=== PATIENT | female | born 1990 | race Caucasian/White ===

== ENCOUNTER 2024-03-24 18:42 | Emergency (ER) | payer OTHER, SELFPAY ==
--- OUTSIDE RECORDS SUMMARY | 2024-03-24 18:45 | XMS REPORT | Continuity of Care Document ---
Author Name Unknown Address [address] [facility] [address] [place] [address] [facility] thconnect Address [address] [facility] [address] [place] [address] Care Team Providers Care Mass Communications Instructor Name Role Phone PCP, PATIENT DOES NOT HAVE A Primary Care Physic lynne Unavailable CASPER SINGH Attending Clinician Unavailable Jose Antonio Mcfarland MD Attending Clinician [phone] Casper Singh DO Attending Clinician [phone] Christina Rushing MD Attending Clinician [phone] CASPER SINGH Admitting Clinician Unavailable Casper Singh DO Admitting Clinician [phone] Payers Payer Name Policy Type Policy Number Effective Date Expirati on Date Source [facility] [id number] 2017 00:00:00 2023 00:00:00 Problems Condition Name Condition Details Condition Category Status Onset Date Resolution Date Last Treatment Date Treating Clinician Comments Source Appendicit is Appendicit is Disease Active 11-03 00:00: 00 [facility] Routine follow-up Routine follow-up Disease Active 03-24 00:00: 00 [facility] Obesity (BMI 30-39.9) Obesity (BMI 30-39.9) Disease Active 03-07 00:00: 00 [facility] HGSIL (high grade squamous intraepith elial lesion) on Pap smear of cervix HGSIL (high grade squamous intraepith elial lesion) on Pap smear of cervix Disease Active 02-03 00:00: 00 Overview: Formattin g of this note might be different from the original. Needs colpo after delivery [facility] Tubal ligation status Tubal ligation status Disease Active 01-31 00:00: 00 [facility] Allergies, Adverse Reactions, Alerts Allergy Name Allergy Type Status Severity Reaction(s) Onset Date Inactive Date Treating Clinician Comments Source PHENYTOI N DRUG INGREDI Active High Other-Cmnt 11-03 00:00: 00 [facility] Phenytoi n Propensi ty to adverse reaction s Active Other - See comments 11-03 00:00: 00 Muscle spasms [facility] Penicill ins Propensi ty to adverse reaction s Active Anaphylaxis 04-10 00:00: 00 [facility] PENICILL INS Drug Class Active Anaphylaxis 04-10 00:00: 00 [facility] Social History Social Habit Start Date Stop Date Quantity Comments Source History of tobacco use Passive smoker [facility] Alcohol intake 2023-11-04 00:00:00 2023-11-04 00:00:00 0 /d [facility] Tobacco Comment 2023-11-03 00:00:00 2023-11-03 00:00:00 Patient reports she vapes daily [facility] Tobacco use and exposure 2023-11-03 00:00:00 2023-11-03 00:00:00 Smokeless tobacco non-user [facility] History of Social function 2023-11-03 00:00:00 2023-11-03 00:00:00 [facility] Education - What is the highest level of school you have completed or the highest degree you have received? 2023-11-03 00:00:00 2023-11-03 00:00:00 9th grade [facility] Sex Assigned At 1990 00:00:00 1990 00:00:00 [facility] Smoking Status Start Date Stop Date Source Occasional tobacco smoker 2023-11-03 00:00:00 [facility] Medications Ordered Medication Name Filled Medication Name Start Date Stop Date Current Medication? Ordering Clinician Indication Dosage Frequency Signature (SIG) Comments Components Source magnesium hydroxide (MILK OF MAGNESIA) 400 mg/5 mL suspension 30 mL 11-05 16:00: 00 Yes 30mL 30 mL, Oral, DAILY, First dose (after last modificati on) on 11/05/23 at 1000, Until Discontinu ed, Routine [facility] enoxaparin (LOVENOX) injection 40 mg 11-05 14:00: 00 Yes 40mg 40 mg, Subcutaneo us, Q24H, First dose on 11/05/23 at 0800, Until Discontinu ed, Routine [facility] lactated ringers IV infusion 1,000 mL 11-05 02:15: 00 11-05 15:31 :20 No 1000mL at 100 mL/hr, 1,000 mL, IV Infusion, CONTINUOUS , Starting on Tue11/04/23 at 2015, Until 11/05/23 at 0931, Routine [facility] levoFLOXaci n in D5W (LEVAQUIN) 750 mg/150 mL Piggyback 750 mg 11-05 02:00: 00 11-05 15:31 :14 No 750mg 750 mg, IV Piggyback, at 100 mL/hr Administer over 90 Minutes, Q24H ABX, 4 doses, First dose (after last modificati on) on Tue11/04/23 at 2000, Last dose on Tue11/07/23 at 1999, SHANNON
Re ason for Anti-Infec tive: Empiric Therapy for Suspected Infection< br>Empiric Therapy Site: Abdominal< br>Duratio n of therapy: 5 days [facility] polyethylen e glycol 3350 17 gram/dose powder 11-05 00:00: 00 11-20 05:59 :00 No [id number] 17g Take 17 g by mouth in the morning for 14 days. [facility] acetaminoph en-codeine 300-30 mg tablet 11-05 00:00: 11-13 05:59 :00 No 4647 1{tbl} Take 1-2 tablets by mouth every 6 (six) hours as needed for Pain (scale 1-3) or Pain (scale 4-6) for up to 7 days. For patients < 12 years recommend do not exceed 5 doses or 2.6 gm in 24 hours totals for all acetaminop hen containing products. For adults with normal hepatic function recommend do not exceed 3 grams in 24 hours for all acetaminop hen containing products. Indication s: acute pain [facility] ondansetron 4 mg disintegrat ing tablet 11-05 00:00: 00 11-13 05:59 :00 No [id number] 4mg Take 1 tablet by mouth every 8 (eight) hours as needed for Nausea and Vomiting (N/V) for up to 7 days. [facility] acetaminoph en (TYLENOL) tablet 650 mg 11-04 18:00: 00 Yes 650mg 650 mg, Oral, Q6H, First dose on Tue11/04/23 at 1200, Until Discontinu ed, Routine [facility] lactulose (CEPHULAC) solution 30 mL 11-04 17:15: 00 11-04 18:56 :00 No 30mL 30 mL, Oral, ONCE, 1 dose, On Tue11/04/23 at 1115, Routine [facility] ondansetron (ZOFRAN (PF)) injection 4 mg 11-04 01:46: 53 Yes 4mg 4 mg, Slow IV Push, Q6HPRN, Nausea and Vomiting (N/V), Starting on Tue11/03/23 at 1946
Do ses of ondansetro n 16 mg and above need to be administer ed via IV piggyback. For Dose >=24mg ECG monitoring is advisable.
[facility] ketorolac (TORADOL) injection 15 mg 11-04 00:00: 00 11-05 23:59 :00 No 15mg 15 mg, Slow IV Push, Q6H, 8 doses, First dose on Tue11/03/23 at 1800, Last dose on Tue11/05/23 at 1200, Routine [facility] heparin (porcine) injection 5,000 Units 11-03 20:00: 00 11-05 01:03 :26 No 5000U 5,000 Units, Subcutaneo us, Q8H, First dose on Lesly 11/03/23 at 1400, Until Discontinu ed, Routine [facility] HYDROcodone -acetaminop hen (NORCO 5) 5-325 mg tablet 1 tablet 11-03 19:56: 24 Yes 1{tbl} 1 tablet, Oral, Q6HPRN, Starting on Lesly 11/03/23 at 1356, Until Discontinu ed, Routine, Pain (scale 4-6) [facility] lactated ringers IV infusion 1,000 mL 11-03 19:00: 00 11-04 00:55 :35 No 1000mL at 50 mL/hr, 1,000 mL, IV Infusion, CONTINUOUS , Starting on Lesly 11/03/23 at 1300, Until Lesly 11/03/23 at 1855, Routine [facility] HYDROmorphO ne (DILAUDID) injection 0.2 mg 11-03 18:45: 18 11-03 19:52 :48 No .2mg 0.2 mg, Slow IV Push, Q5MIN PRN, 10 doses, Starting on Lesly 11/03/23 at 1245, Until Lesly 11/03/23 at 1352, Routine, Pain (scale 7-10), PACU
Us e approved by (Faculty): PACU USE -ANESTHESI A SERVICE-HY DROMORPHON E INJECTIONS [facility] FENTanyl PF (SUBLIMAZE (PF)) injection 25 mcg 11-03 18:45: 18 11-03 19:52 :48 No 25ug 25 mcg, Slow IV Push, Q5MIN PRN, 4 doses, Starting on Lesly 11/03/23 at 1245, Until Lelsy 11/03/23 at 1352, Routine, Pain (scale 4-6), PACU [facility] ondansetron (ZOFRAN (PF)) injection 4 mg 11-03 18:45: 18 11-03 19:29 :00 No 4mg 4 mg, Slow IV Push, PRN, 1 dose, Starting on Lesly 11/03/23 at 1245, Until Lesly 11/03/23 at 1329, Routine, Nausea and Vomiting (N/V), PACU [facility] water for irrigation irrigation solution 11-03 18:25: 00 11-03 19:43 :58 No PRN, Starting on Lesly 11/03/23 at 1225, Until Lesly 11/03/23 at 1343, Routine, Intra-op [facility] bupivacaine (preserv free) (SENSORCAIN E MPF) 0.25 % (2.5 mg/mL) injection 11-03 18:25: 00 11-03 19:43 :58 No PRN, Starting on Lesly 11/03/23 at 1225, Until Lesly 11/03/23 at 1343, Routine, Intra-op [facility] nicotine (NICODERM) 14 mg/24 hr patch 1 Patch 11-03 17:15: 00 Yes 1{patch } 1 Patch, Topical, Administer over 24 Hours, Q24H, First dose on Lesly 11/03/23 at 1115, Until Discontinu ed, Routine [facility] metroNIDAZO LE in NaCl (iso-os) (FLAGYL I.V.) RTU IV infusion 500 mg 11-03 15:30: 00 11-05 15:31 :14 No 500mg 500 mg, IV Infusion, Q12H ABX, 10 doses, First dose on Lesly 11/03/23 at 0930, Last dose on Tue11/07/23 at 2130, Administer over 60 Minutes, 100 mL
Reas on for Anti-Infec tive: Empiric Therapy for Suspected Infection< br>Empiric Therapy Site: Abdominal< br>Duratio n of therapy: 5 days [facility] lactated ringers IV infusion 1,000 mL 11-03 14:30: 00 11-03 18:59 :55 No 1000mL at 125 mL/hr, 1,000 mL, IV Infusion, CONTINUOUS , Starting on Lesly 11/03/23 at 0830, Until Lesly 11/03/23 at 1259, Routine [facility] morpHINE (4 mg/mL) injection 4 mg 11-03 14:15: 20 11-04 14:14 :20 No 4mg 4 mg, Slow IV Push, Q4HPRN, Starting on Tue11/03/23 at 0815, Until Tue11/04/23 at 0814, Routine, Pain (scale 7-10) [facility] ferrous sulfate 325 mg (65 mg iron) tablet 03-03 00:00: 00 Yes 325mg Take 1 tablet by mouth 2 (two) times daily. [facility] docusate calcium 240 mg capsule 03-03 00:00: 00 11-05 00:00 :00 No 240mg Take 1 capsule by mouth once daily as needed for Constipati on. [facility] acetaminoph en-codeine 300-30 mg tablet 03-03 00:00: 00 11-05 00:00 :00 No 1{tbl} Take 1-2 tablets by mouth every 6 (six) hours as needed for Pain (scale 1-3) or Pain (scale 4-6). For patients < 12 years recommend do not exceed 5 doses or 2.6 gm in 24 hours totals for all acetaminop hen containing products. For adults with normal hepatic function recommend do not exceed 3 grams in 24 hours for all acetaminop hen containing products. [facility] ibuprofen 600 mg tablet 03-03 00:00: 00 11-03 00:00 :00 No 600mg Take 1 tablet by mouth every 6 (six) hours as needed for Pain (scale 1-3) or Pain (scale 4-6). Take with food or milk. [facility] vitamin w/FA tablet 03-03 00:00: 00 11-03 00:00 :00 No 1{tbl} Take 1 tablet by mouth daily. [facility] Immunizations Ordered Immunization Name Filled Immunization Name Date Status Comments Source TD, NOS Unknown Completed [facility] TDAP Unknown Completed [facility] Rho (d) Immune Globulin Unknown Completed [facility] Rho (d) Immune Globulin Unknown Completed [facility] TD, NOS Unknown Completed [facility] TDAP Unknown Completed [facility] Rho (d) Immune Globulin Unknown Completed [facility] Rho (d) Immune Globulin Unknown Completed [facility] Vital Signs Vital Name Observation Time Observation Value Comments S chelsie Systolic blood pressure 2023-11-05 16:58:00 124 mm[Hg] [facility] Diastolic blood pressure 2023-11-05 16:58:00 84 mm[Hg] [facility] Heart rate 2023-11-05 16:58:00 83 /[facility] Body temperature 2023-11-05 16:58:00 36.22 Nany [facility] Respiratory rate 2023-11-05 16:58:00 18 /min [facility] Oxygen saturation in Arterial blood by Pulse oximetry 2023-11-05 16:58:00 96 /min [facility] Body weight 2023-11-05 09:38:00 87.091 kg [facility] BMI 2023-11-05 09:38:00 37.50 kg/m2 [facility] Body height 2023-11-03 15:54:00 152.4 cm [facility] Systolic blood pressure 2023-11-03 19:42:00 105 mm[Hg] [facility] Diastolic blood pressure 2023-11-03 19:42:00 66 mm[Hg] [facility] Heart rate 2023-11-03 19:42:00 89 /min [facility] Respiratory rate 2023-11-03 19:42:00 10 /min [facility] Oxygen saturation in Arterial blood by Pulse oximetry 2023-11-03 19:42:00 99 /min [facility] Body temperature 2023-11-03 18:50:00 36.11 Nany [facility] Body height 2023-11-03 15:54:00 152.4 cm [facility] Body weight 2023-11-03 15:54:00 86.5 kg [facility] BMI 2023-11-03 15:54:00 37.89 kg/m2 [facility] Procedures Procedure Date / Time Performed Performing Clinician Source BASIC METABOLIC PANEL (NA, K, CL, CO2, GLUCOSE, BUN, CREATININE, CA) 2023-11-05 10:31:00 Casper Singh [facility] CBC WITH DIFF 2023-11-05 10:31:00 Casper Singh [facility] CBC WITH DIFF 2023-11-04 11:08:00 Dannielle Mcghee [facility] CBC WITH DIFF 2023-11-04 11:08:00 Dannielle Mcghee [facility] LAPAROSCOPIC APPENDECTOMY 2023-11-03 17:31:00 Kristan [facility] LAPAROSCOPIC APPENDECTOMY 2023-11-03 17:31:00 Kristan [facility] MAGNESIUM 2023-11-03 15:44:00 Casper Singh [facility] COMP. METABOLIC PANEL ([id number]) 2023-11-03 15:44:00 Casper Singh [facility] CBC WITH DIFF 2023-11-03 15:44:00 Casper Singh [facility] MAGNESIUM 2023-11-03 15:44:00 Casper Singh [facility] COMP. METABOLIC PANEL ([id number]) 2023-11-03 15:44:00 Casper Singh [facility] CBC WITH DIFF 2023-11-03 15:44:00 Casper Singh [facility] Encounters Start Date/Time End Date/Time Encounter Type Admission Type Attending Clinicians Care Facility Care Department Encounter ID Source 2023-11-03 07:58:00 2023-11-05 11:53:00 Outpatient U CASPER SINGH [facility] [id number] [facility] 2023-11-03 07:58:00 2023-11-05 11:53:00 Hospital Encounter Jose Antonio Mcfarland David [facility] [id number] [facility] 2023-11-03 11:50:00 2023-11-03 13:42:00 Surgery Christina Rushing [facility] [id number] [facility] Consult Notes Date/Time Note Provider Source 2023-11-03 14:15:00 [id number] T14:15:00Associated Order(s): CONSULT PS PASTORAL CARE Universal Winding Machine Operator visited with patient per consult. Patient had surgery this morning. Patient received in bed awake. Patient appeared to be in pain and tears. Universal Winding Machine Operator called for nurse support. Patient was at bedside.Universal Winding Machine Operator was a spiritual presence and yarn sizer offering active compassionate listening. Universal Winding Machine Operator assist patient with nurse support. Universal Winding Machine Operator offered patient words of support and encouragement. Universal Winding Machine Operator left patient with a spiritual reading resource for continued encouragement. Patient thanked Universal Winding Machine Operator for the visit.Additional Universal Winding Machine Operator support is available upon request.Universal Winding Machine Operatoryue Montoya, [facility] [phone] signed by Christina Montoya at 11/03/2023 4:03 PM [id number] [id number]:03:01Consult [id number] for patient [id number] noteLNNARRATIVEFormatted C-CDA narrative [id number] Medina[address] V[id number]:03 :[id number]|1..840.1 [id number] Christina Montoya [facility] 2023-11-03 11:00:00 [id number] SRAfutBAZL2kofO/P [id number] T11:00:00Associated Order(s): CONSULT GENERAL SURGERY GENERAL SURGERY CONSULTATION NOTEReason for Consultation / Chief Complaint: Acute appendicitisConsult Requested By: Dr. SinghHislouise of Present Illness: Shelley Kinsey is a 33 year old female with PMHx as below who presents as a transfer for acute appendicitis. She reports acute onset of RLQ abdominal pain which woke her from sleep around 0045 hrs. She reports associated nausea. Denies fever, chills, vomiting. No similar pain in past. No blood thinners. She was seen at an OSH and imaging completed which showed early acute appendicitis.Past Medical History:Past Medical History:Diagnosis DateAnemia, 03/03/2017Seizureshad seizure after of third child a couple of days after deliveryPast Surgical History:Past Surgical History:Procedure Laterality DateTUBAL LIGATION Bilateral 03/02/2017Surgeon: Da Diamond; [facility] - [facility]Allergies:AllergiesAllergen ReactionsDilantin [Phenytoin] Other - See commentsMuscle spasmsPcn [Penicillins] AnaphylaxisMedications:Current Discharge Medication ListSTOP taking these medicationsacetaminophen-codeine 300-30 mg tablet Comments:Reason for Stopping:docusate calcium 240 mg capsule Comments:Reason for Stopping:ferrous sulfate 325 mg (65 mg iron) tablet Comments:Reason for Stopping:Current Facility-Administered MedicationsMedication Dose Route Frequency Last Rate Last Adminheparin (porcine) injection 5,000 Units 5,000 Units Subcutaneous G7Kqkrahmkn ringers IV infusion 1,000 mL 1,000 mL IV Infusion CONTINUOUS 125 mL/hr at 11/03/23 1040 1,000 mL at 11/03/23 1040[START ON 11/04/2023] levoFLOXacin in D5W (LEVAQUIN) 750 mg/150 mL Piggyback 750 mg 750 mg IV Piggyback Q24H ABXmetroNIDAZOLE in NaCl (iso-os) (FLAGYL I.V.) RTU IV infusion 500 mg 500 mg IV Infusion Q12H ABX 100 mL/hr at 11/03/23 1045 500 mg at 11/03/23 1045morpHINE (4 mg/mL) injection 4 mg 4 mg Slow IV Push Q4HPRN 4 mg at 11/03/23 1035nicotine (NICODERM) 14 mg/24 hr patch 1 Patch 1 Patch Topical [id number] History:Family HistoryProblem Relation Age of OnsetHeart FatherMIBreast Cancer Maternal AuntBreast Cancer Maternal GrandmotherArthritis NoFHxAsthma NoFHxBirth defects NoFHxColon Cancer NoFHxOvarian Cancer NoFHxUterine Cancer NoFHxCancer NoFHxDepression NoFHxDiabetes NoFHxGenetic NoFHxHigh cholesterol NoFHxHypertension NoFHxMental retardation NoFHxNeurological NoFHxOsteoporosis NoFHxPsychiatry NoFHxOther - see comments NoFHxSocial History:Social HistorySocioeconomic HistoryMarital status: SingleNumber of children: 6Years of education: 9Highest education level: 9th gradeOccupational HistoryOccupation: NATEmployer: [employer] [employer] CENTERTobacc UseSmoking status: Some DaysTypes: CigarettesPassive exposure: PastSmokeless tobacco: NeverTobacco comments:Patient reports she vapes dailyVaping UseVaping Use: Every daySubstance and Sexual ActivityAlcohol use: NoAlcohol/week: 0.0 standard drinks of alcoholDrug use: NoSexual activity: YesPartners: MaleBirth control/protection: NoneComment: last had sex intercourse 12/03/2016Other Topics ConcernBlood Transfusions NoSocial History NarrativeNo domestic violence or abusePt states her mormonism preference is BaptistReview of Systems:A 14 point ROS was obtained, only positive responses are in BOLDConstitutional: Fever, chills, loss of appetite, fatigue, unexplained weight loss, unexplained weight gain, weaknessHead/Ears/Nose/Mouth/Throat:H ead: Headache, head injury, neck pain, neck stiffnessEars: Ear discharge, hearing loss, ear pain, tinnitusNose: Nose bleeds, sinus congestion, runny nose, postnasal drip, sneezing, sinus pressureMouth: Dental problems, mouth sores, sore tongue, dry mouthThroat: Sore throat, trouble swallowing, voice changeEyes: Discharge, itching, pain, redness, pain, vision disturbance, blurred vision, vision loss, cataracts, glaucomaCV: Chest pain, palpitations, arrhythmias, dyspnea on exertion, othopnea, claudication, edema, coronary artery disease/history of MIRespiratory: Cough, sputum production, hemoptysis, wheezing, shortness of breath, sleep apneaGI: Dysphagia, abdominal pain, abdominal distention, indigestion, nausea, vomiting, diarrhea, constipation, hematemesis, blood in stool or dark stool, rectal bleeding, rectal pain, jaundiceGU: Frequency, urgency, pain or burning with urination, flank pain, hematuria, incontinence, change in urinary stream, discharge, bleeding, pelvic pain, irregular mensesMusculoskeletal: Muscle pain, joint pain, joint swelling, back pain, stiffness, weakness, limitation of motion, arthritis, traumaIntegumentary/Breast:Integument daiana: Rash, itching, pigmented lesions, lumps, tenderness, swelling, woundBreast: Pain, lumps, nipple discharge, skin changesNeurological: Weakness, sensory changes, syncope, seizures, headache, numbness, tingling, tremor, traumaHematologic/Lymphatic:Hematolog ic: Bleeding tendency, easy bruising, history of blood clots, anticoagulation/antiplatelet therapyLymphatic: LymphadenopathyEndocrine: Polyuria, polydipsia, polyphagia, heat or cold intolerance, hair loss, appetite changesAllergic/Immunologic:Allergic: Allergic reactionsImmunologic: Recurrent infectionsPsychiatric: Agitation, confusion, decreased concentration, hallucinations, anxiety, self-injury, sleep disturbance, suicidal ideationPhysical Exam:BP 109/70 | Pulse 87 | Temp 36.4 ?C (97.6 ?F) | Ht 1.524 m (5') | Wt 86.5 kg (190 lb 11.2 oz) | SpO2 95% | BMI 37.24 kg/m?Constitutional: Awake, alert, oriented, in no acute distressHead: Normocephalic, atraumaticEyes: Extraocular movements grossly intact, anicteric scleraeEars: Normal external examNose: Normal external examMouth: Moist mucous membranes, good dentition, no lesions, tongue midlineThroat: Clear without erythema or exudateNeck: Supple, no jugular venous distentionCardiovascular: Regular rate and rhythm without murmurs, gallops, or rubsRespiratory: Symmetry of chest wall motion, clear to ausculation bilaterally, no respiratory distressGI: Soft, tender in right abdomen, mostly RLQ, non-distended, well healed small transverse infraumbilical scarExtremities: No clubbing, cyanosis, or edemaMusculoskeletal: Normal tone and strength, normal range of motionNeurologic: CN II through XII grossly intact, no focal deficitsSkin: Warm and dry, capillary refill <2 seconds, no jaundice, rashes, lesions, or erythemaPsychiatric: Appropriate mood and affect, no obvious deficits of insight or judgmentLabs:I independently reviewed the patient's labs.CBCWBC x10^3 (/uL)Date Value04/10/2014 11.9 (H)WBC (10*3/?L)Date Value11/03/2023 16.11 (H)RBC x10^6 (/uL)Date Value04/10/2014 3.61 (L)RBC (10*6/?L)Date Value11/03/2023 4.10PLT x10^3 (/uL)Date Value04/10/2014 222PLT (10*3/?L)Date Value11/03/2023 207HGBDate Value11/03/2023 12.7 g/dL04/10/2014 11.5 G/DL (L)HCT (%)Date Value11/03/2023 38. 34.7 (L)BMPNA (mmol/L)Date Value11/03/2023 137K (mmol/L)Date Value11/03/2023 3.7CALCIUM (mg/dL)Date Value11/03/2023 8.8CL (mmol/L)Date Value11/03/2023 105BUN (mg/dL)Date Value11/03/2023 9CREATININE (mg/dL)Date Value11/03/2023 0.51GLUCOSE (mg/dL)Date Value11/03/2023 94CO2 TOTAL (mmol/L)Date Value11/03/2023 24Hepatic Function PanelALBUMIN (g/dL)Date Value11/03/2023 4.1T PROTEIN (g/dL)Date Value11/03/2023 7.3TOTAL BILI (mg/dL)Date Value11/03/2023 0.6ALTv (U/L)Date Value11/03/2023 25AST(SGOT) (U/L)Date Value11/03/2023 34ALK PHOS (U/L)Date Value11/03/2023 69Radiology:OSH CT abdomen/pelvis unable to be viewed, read reports enlarged appendix measuring 7 mm with wall enhancement, no appendicolith, small amount of stranding, small amount of fluid in cul de sacAssessment: Shelley Kinsey is a 33 year old female who presents with acute appendicitis. Afebrile, vitals stable, non toxic appearing.Plan:- OR today for laparoscopic, possible open, appendectomy and all other indicated procedures- Written informed consent obtained- NPO with IVF for procedure- Continue IV abx pre operativelyAdamssfe Luna, DOGeneral Surgery PGY-3 ssociated attestation - Christina Rushing MD - 11/03/2023 1:04 PM CST I personally examined the patient on 11/03/[address] Luna's resident note as written . I actively participated in the decision-making process. Please see the resident's note for additional details.Christina Rushing MD11488-4Consult [id number]395.1.13.104.2.7.2 .749594FrcnXcwqverwMR1657-07-07V77:04 :58Consult noteTXT1.2.840.094281.1.13.104.2.7.2. 998775|[id number] for patient iyxm89917-3Rgaacui noteLNNARRATIVEFormatted C-CDA narrative hewiVTW-WVIMMRQLUM-PTZIAFHYWMRATMW - Lgx[address] [place] [address] HlyzYqjheovwiCtrhmnlxfMKQU1879831663J ODACYAACFRWRPYCPYFART4737-62-06T33:04 :581.2.840.306714.1.72.3.15|1.2.840.1 79096.1.13.104.2.7.2.727879_[id number] 3 [facility] History and Physical Notes Date/Time Note Provider Source 2023-11-03 10:07:50 qhmzIfBa16WfiSNIkIEv lm+YM8+lmSNZvwmkESoQap hSDFvZPzyxmAblW9z/yPI40819-40-59O24:07:50F ormatting of this note is different from the original.Medicine History & PhysicalDate of Service: 11/03/2023t presents from: Outside ERCC: Abdominal painHistory of Present Illness:Shelley Kinsey is a 33 year old female with past md hx of seizures not on medication, anemia, history of headaches that presents to outside emergency room for abdominal pain. Per patient and chart she was in her normal state of health developed severe right lower quadrant abdominal pain started approximately 1 AM. She states last evening at approximately 8 PM the night before and drank tea at approxi-1 AM. She states developing intractable abdominal pain with nausea and vomiting no diarrhea denies any melena hematochezia or hematemesis. Due to this pain she decided to go to the ED for evaluation. In the emergency department at [facility] her initial CBC showed no elevated white blood cell count. Chemistries show an elevated glucose of 117. UA showed no white blood cells. INR normal. She did receive a CT of the abdomen pelvis shown a large appendix with mild wall thickening and enhancement with faint Fritz appendectomy Veal stranding and no intraluminal air findings were suspicious for early acute appendicitis. She is also noted to have small amount of free fluid in the pelvic cul-de-sac. No abscess was seen. Based on exam and results she was diagnosed with acute appendicitis at facility request transfer to our facility. Patient was given a dose of Flagyl and Cipro on the ambulance ride to our facility transported without further incident.On my exam she is complaining of right lower quadrant pain feels nauseous. States she takes no medications she does vape daily smokes occasionally denies drugs or alcohol.ROS: Pt denies F / D / Constipation / CP / SOB / cough dysuria / hematuria / melena / hematochezia / rashes / suicidal or homicidal ideation / All others negativeReview of Hx/Meds:PMH:Past Medical History:Diagnosis DateAnemia, 03/03/2017Seizureshad seizure after of third child a couple of days after deliveryPSH: has a past surgical history that includes tubal ligation (Bilateral, 03/02/2017).Family Hx: Noncontributory unless mentioned aboveSocial HistoryTobacco UseSmoking status: Some DaysTypes: CigarettesPassive exposure: PastSmokeless tobacco: NeverTobacco comments:Patient reports she vapes dailyVaping UseVaping Use: Every daySubstance Use TopicsAlcohol use: NoAlcohol/week: 0.0 standard drinks of alcoholDrug use: NoCurrent Scheduled Medications Current IVCurrent Facility-Administered Medications:heparin (porcine) injection 5,000 Units, 5,000 Units, Subcutaneous, Q8H, Casper Singh DOlactated ringers IV infusion 1,000 mL, 1,000 mL, IV Infusion, CONTINUOUS, Casper Singh DO[START ON 11/04/2023] levoFLOXacin in D5W (LEVAQUIN) 750 mg/150 mL Piggyback 750 mg, 750 mg, IV Piggyback, Q24H Hossein MELTON David DOmetroNIDAZOLE in NaCl (iso-os) (FLAGYL I.V.) RTU IV infusion 500 mg, 500 mg, IV Infusion, Q12H Hossein MELTON David DOmorpHINE (4 mg/mL) injection 4 mg, 4 mg, Slow IV Push, Q4HPRNHossein David DOnicotine (NICODERM) 14 mg/24 hr patch 1 Patch, 1 Patch, Topical, Q24H, Casper Singh DOObjective:Vitals:Vitals:11/03/23 0800 11/03/23 0821 11/03/23 0951 11/03/23 0954BP: 109/70Pulse: 87Temp: 36.4 ?C (97.6 ?F)SpO2: 95%Weight: 90.5 kg (199 lb 8 oz) 86.5 kg (190 lb 9.6 oz) 86.5 kg (190 lb 11.2 oz)Height: 1.524 m (5') 1.524 m (5') 1.524 m (5')I/O's:No intake or output data in the 24 hours ending 11/03/23 1007Physical Exam:General: NAD, Alert, lying in bed comfortable, cogent speech.HEENT: anicteric, oral mucosa dryNeck: supple, no JVD, no bruits.Chest: CTA B/L, no W/R/C.Heart: RRR, S1/S2, no M/G/RAbdominal: Bowel sounds diminished, generalized peritoneal tenderness without guarding or rigiditySkin/Extremities: no rash, no cyanosis, warm and dry, no LE edema.Neurological: CN II-XII grossly intact, no focal deficits.Labs:BMP:BMPNo results found for: "NA", "K", "CA", "CL", "BUN", "CREAT", "GLU", "TCO2"CBC:CBCWBC x10^3 (/uL)Date Value04/10/2014 11.9 (H)WBC (10*3/?L)Date Value03/08/2017 11.04RBC x10^6 (/uL)Date Value04/10/2014 3.61 (L)RBC (10*6/?L)Date Value03/08/2017 3.81 (L)PLT x10^3 (/uL)Date Value04/10/2014 222PLT (10*3/?L)Date Value03/08/2017 331HGBDate Value03/08/2017 11.5 g/dL (L)04/10/2014 11.5 G/DL (L)HCT (%)Date Value03/08/2017 35.2 (L)04/10/2014 34.7 (L)BMP:Hepatic Function PanelI have reviewed all relevant labsImaging:No results found.Assessment and plan:Principal Problem:AppendicitisAcute appendicitis:- Surgical consult- N.p.o.- Start gentle IV fluids- Continue pain management with morphine- Continue antibiotic therapy will go with Levaquin with Flagyl- Trend few white blood cell countActive smoker:- Counseled to quit- Nicotine patch offered and acceptedDVT prophylaxis: HeparinTobacco user (Z71.6): yesPatient counseled at length and Pt expressed full understanding, Time discussed 3 minutesTexas LABELING SPECIALIST was verifiedDisposition: Continue n.p.o. start IV fluids continue antibiotics follow-up surgical evaluation Signed:Casper Singh DO11/03/2023 09163-0Jvphhbr and physical tkhbFA0523-51-25Q68:14:53History and physical noteTXT1.2.840.723210.1.13.104.2.7.2.77302 9|[id number] for patient vhek91193-7Pzmuqsf and physical noteLNNARRATIVEFormatted C-CDA narrative text[address] Uqhh[id number] LZYTOIUMPWKUFVEO3997-58-62X40:14:531.2.840 .131804.1.72.3.15|1.2.840.259827.1.13.104. 2.7.2.727879_[id number] [facility] Notes Date/Time Note Provider Source 2023-11-05 11:25:50 ny5xcVWfjpc/Ul2QiissgGJRe+KKWS0XQu oxbqewPJdaTLPy/YKqlxznDckdDUwN1890 -11-05T11:25:50 Problem: Skin integrity Impaired (Risk or Actual)Goal: Wound healing11/05/2023 112 by Zoila Alcocer RNOutcome: Resolved11/05/2023 112 by Zoila Alcocer RNOutcome: Adequate for dischargeProblem: PainGoal: Reduction in pain sensation11/05/2023 1125 by Zoila Alcocer RNOutcome: Resolved11/05/2023 112 by Zoila Alcocer RNOutcome: Adequate for dischargeProblem: Nausea/VomitingGoal: Absence of nausea/vomiting11/05/2023 112 by Zoila Alcocer RNOutcome: Resolved11/05/20231124 by Zoila Alcocer RNOutcome: Adequate for dischargeProblem: Fluid Volume - ImbalancedGoal: Absence of imbalanced fluid volume signs and symptoms11/05/2023 112 by Zoila Alcocer RNOutcome: Resolved11/05/20231124 by Zoila Alcocer RNOutcome: Adequate for discharge 05673-1Cvxs of care nrkrJP3951-82-00X43:25:51Plan of care noteTXT1.2.840.306413.1.13.104.2.7 .2.483151|[id number] for patient oxvf36410-1ZlsdFKJQCGUPMVLJhzcdrnm d C-CDA narrative [id number] M. Kurian RNUTMBUT - [address] Zq[id number] 07LJNGBYPXRLAISDOMVZAQWV4110-33-59 T11:25:511.2.840.357768.1.72.3.15| 1.2.840.260791.1.13.104.2.7.2.7278 [id number] Zoila Alcocer RN [facility] 2023-11-04 22:44:04 4UNr+JHcD9E4csvoc3RzeMSoFUUp7fvisY oKxF7Qc2LmcEZyGu5PbNNJeO50789t2645 -01-05T22:44:04 Problem: Skin integrity Impaired (Risk or Actual)Goal: Wound healingOutcome: Progressing as expectedProblem: PainGoal: Reduction in pain sensationOutcome: Progressing as expectedProblem: Nausea/VomitingGoal: Absence of nausea/vomitingOutcome: Progressing as expectedProblem: Fluid Volume - ImbalancedGoal: Absence of imbalanced fluid volume signs and symptomsOutcome: Progressing as expected 90630-5Gmzv of care mfqaGL0529-06-89I63:44:09Plan of care noteTXT1.2.840.641914.1.13.104.2.7 .2.495395|[id number] for patient nohb50823-3UcuaNZZDFPITDETCxgsziwp d C-CDA narrative [id number] Kavattu RN[address][id number] 98JBEIPPGXSVXTFIKXZIRZWM4908-65-19 T22:44:091.2.840.768666.1.72.3.15| 1.2.840.869065.1.13.104.2.7.2.7278 [id number] Teresa Cuellar RN [facility] 2023-11-03 22:56:12 /ykKT9MAmygEahayW9+UYzJmlssKxPBfE2 mj+1y4II3izTe4+kuTY/gFyrHC4j3S6778 -01-04T22:56:12 Problem: Skin integrity Impaired (Risk or Actual)Goal: Wound healingOutcome: Progressing as expectedProblem: PainGoal: Reduction in pain sensationOutcome: Progressing as expectedProblem: Nausea/VomitingGoal: Absence of nausea/vomitingOutcome: Progressing as expectedProblem: Fluid Volume - ImbalancedGoal: Absence of imbalanced fluid volume signs and symptomsOutcome: Progressing as expected 30798-7Uyua of care ihukBW3724-18-45L22:56:16Plan of care noteTXT1.2.840.626775.1.13.104.2.7 .2.323182|[id number] for patient fesa47541-7CkeyAOVLWDNQYTUKnlvrwts d C-CDA narrative [address][id number] 09ENKPUMZFNTHBAIASYBKMAF8910-19-26 T22:56:161.2.840.576045.1.72.3.15| 1.2.840.372228.1.13.104.2.7.2.7278 [id number] [facility] 2023-11-03 16:48:17 sQlL0ToWYpsETpLk49+yh7qdOLDoipNWTF 0FIrwxrY91pmPvSnBhSD6vADhX3ein7975 -01-04T16:48:17 Problem: Skin integrity Impaired (Risk or Actual)Goal: Wound healing11/03/2023 1648 by Jodi Lopez RNOutcome: Progressing as expected11/03/2023 1647 by Jodi Lopez RNOutcome: Progressing as expected11/03/2023 1646 by Jodi Lopez RNOutcome: Progressing as expectedProblem: PainGoal: Reduction in pain sensation11/03/2023 1648 by Jodi Lopez RNOutcome: Progressing as expected11/03/2023 1647 by Jodi Lopez RNOutcome: Progressing as expectedProblem: Nausea/VomitingGoal: Absence of nausea/vomiting11/03/2023 1648 by Jodi Lopez RNOutcome: Progressing as expected11/03/2023 1647 by Jodi Lopez RNOutcome: Progressing as expectedProblem: Fluid Volume - ImbalancedGoal: Absence of imbalanced fluid volume signs and symptomsOutcome: Progressing as expected 50153-8Ayxp of care jcqnXN9171-91-17T83:48:23Plan of care noteTXT1.2.840.407497.1.13.104.2.7 .2.108653|[id number] for patient aicx76210-4BuezMUQKTABCNLZEsstamcv d C-CDA narrative vssf954125380VtjbrJodi Lopez RN[address] [id number] 58NHDWCVRPDONTRANLKRQOAP1237-70-16 T16:48:231.2.840.930524.1.72.3.15| 1.2.840.197704.1.13.104.2.7.2.7278 [id number] Jodi Lopez RN [facility] 2023-11-03 12:09:00 0vKo0SEbk/PgZk4kWRVWOmY7A77Q0HSA45 azEeQFu8WZtQN7xO6Q19fpUCuZNh/A2024 -11-03T12:09:00 FULL OPERATIVE NOTEDate of Surgery: 4Preoperative diagnosis: Acute appendicitisPostoperative diagnosis: SameProcedure: Laparoscopic appendectomySurgeons:Faculty: ROMEL Victoriaesident: None availableAnesthesiologist: Trey Mike MDAnesthesia: General endotracheal intubationEBL: 5 mLSponge, needle, and instrument count: Correct at the end of the case H3Bbvdc, drains: NoneSpecimen: AppendixFindings: Mildly inflamed appendix, non-perforated.Complications: NoneIndications:Shelley Kinsey is a 33 year old female who presented to [facility] for RLQ abdominal pain. She had a CT done with concern of acute early appendicitis. The risks and benefits of a laparoscopic appendectomy were discussed with patient and she agreed to proceed.Procedure:The patient was brought back to the operating room. She was placed in supine position. The abdomen was prepped and draped in the usual fashion. A time out was performed, identifying the correct patient, procedure as well as antibiotics.The abdomen was entered through a supraumbilical Bayron cut down. The abdomen was entered and the abdomen was insufflated to 15 mmHg. She tolerated insufflation. I did a brief inspection and there was no injury from our cut down. Patient was positioned with head down and right side up.A 5 mm port was placed under direct visualization in the suprapubic area after local anesthetic was injected. A second 5 mm was placed in the left lower quadrant. The tinea coli was traced down to the base of the appendix. The appendix appeared mildly inflamed. The appendix was retracted anteriorly and laterally. Using maryland, a mesenteric window was created at the base of the appendix. With a ligasure, the mesoappendix was transected. The appendix was then encircled with two 0 PDS endloops. The appendix was transected and placed in an endocatch bag and removed from the supraumbilical port. The fascia was infiltrated with local anesthetic. The fascia was closed with 0 Vicryl in a simple interrupted fashion.All skin incisions were then closed using 4-0 Monocryl in a subcuticular fashion. Dermabond was applied to all skin incisions.The patient was then awakened from general anesthesia, extubated in the operating room, and then transferred to the recovery room in satisfactory condition.The counts were correct at the end of the case. The patient received no blood products.Christina Rushing M.D.11/03/2023 12:52 77730-2Fpoelcs Surgical operation tvfpVI0538-43-80D25:58:35Surgery Surgical operation noteTXT1.2.840.928845.1.13.104.2.7 .2.974551|[id number] for patient tpum35157-5ToaoHCBRYXNHITABfmetfmb d C-CDA narrative textUT[address] OzemMi[id number] 48RGWRDLIJLLEALCZZNUNFOA9090-39-34 T12:58:351.2.840.143042.1.72.3.15| 1.2.840.529458.1.13.104.2.7.2.7278 [id number] [facility]
[2024-03-24] MEDS ORDERED: DIPHENHYDRAMINE 50 MG/ML VIAL ONE (19:33)
[2024-03-24] MEDS ORDERED: METOCLOPRAMIDE 10 MG/2mL INJ ONE (19:33)
[2024-03-24] MEDS ORDERED: NA CHLORIDE 0.9% 1,000 ML ONE (19:33)
[2024-03-24 19:35] LABS: Absolute Basophils 0.1 K/uL (0-0.5); Absolute Eosinophils 0.1 K/uL (0-0.5); Absolute Lymphocytes (CBC) 2.1 K/uL (0.7-4.9); Absolute Monocytes 0.8 K/uL (0.1-1.3); Basophils % 0.6 % (0-1.3); Eosinophils % 1.3 % (0-4.4); Hematocrit 36.2 % (36.0-45.0); Hemoglobin 12.4 g/dL (12.0-15.0); Lymphocytes % 18.7 % (15.3-44.8); MCH 30.7 pg (27.0-35.0); MCHC 34.2 g/dL (32.0-36.0); MCV 89.7 fL (80-100); MPV 7.5 fL (7.6-11.3); Monocytes % 7.4 % (3.3-12.3); Nucleated Red Blood Cells % 0.1 % (0-0); Platelets 395 thou/uL (152-406); RBC Red Blood Cell Count 4.04 M/uL (3.86-4.86); Red Cell Distribution Width 12.8 % (12.1-15.2)
--- NOTE | 2024-03-24 19:35 | RAD REPORT ---
EXAM DESCRIPTION: CT - Head Brain Wo Cont - 03/24/2024 7:26 pm CLINICAL HISTORY: Dizziness;Headache COMPARISON: Head Brain Wo Cont dated 03/20/2024; HEAD BRAIN W O CONTRAST dated 07/08/2010 TECHNIQUE: All CT scans are performed using dose optimization technique as appropriate and may inclu de automated exposure control or mA/KV adjustment according to patient size. FINDINGS: No intracranial hemorrhage, hydrocephalus or extra-axial fluid collection.No areas of brai n edema or evidence of midline shift. The cisterna magna. The paranasal sinuses and mastoids are clear. The calvarium is intact. IMPRESSION: No acute intracranial abnormality.
[2024-03-24 19:39] LABS: PT Prothrombin Time 12.9 SECONDS (9.5-12.5); PTT, Activated Partial Thromb 31.6 SECONDS (24.3-36.9); Protime INR 1.18
[2024-03-24 19:57] LABS: ALT/SGPT 29 U/L (13-56); AST/SGOT < 10 U/L (15-37); Albumin 3.2 g/dL (3.4-5.0); Albumin/Globulin Ratio 0.8 (1.1-1.8); Alkaline Phosphatase 50 U/L (45-117); Anion Gap 11.7 mEq/L (5.0-15.0); BUN Blood Urea Nitrogen 12 mg/dL (7-18); Bicarbonate 23 mEq/L (21-32); Bilirubin Direct < 0.2 mg/dL (0-0.2); Bilirubin Total 0.2 mg/dL (0.2-1.0); Globulin 4.2 g/dL (2.3-3.5); Glomerular Filtration Rate 100 ml/min (=/>90); Glucose Level 124 mg/dL (74-106); Magnesium 2.7 mg/dL (1.6-2.4); NT PRO-BNP 60 pg/mL (<125); Potassium 3.7 mEq/L (3.5-5.1); Protein, Total 7.4 g/dL (6.4-8.2); Sodium Level 136 mEq/L (136-145); Troponin High Sensitivity 5.9 pg/mL (<58.9)
--- NOTE | 2024-03-24 20:58 | RAD REPORT ---
EXAM DESCRIPTION: RAD - Chest Single View - 03/24/2024 8:49 pm CLINICAL HISTORY: COUGH COMPARISON: CHEST SINGLE VIEW dated 07/08/2010 FINDINGS: Lines: None. Lungs: No evidence of edema or pneumonia. Pleural: No significant pleural effusions or pneumothorax. Cardiac: The heart size is within normal limits. Mediastinum: Within normal limits. Bones: No acute fractures. Other: None IMPRESSION: No acute cardiopulmonary disease.
[2024-03-24 21:40] LABS: Urine Bacteria None Seen /HPF (<20); Urine Bilirubin NEGATIVE (Negative); Urine Blood Negative (Negative); Urine Clarity Extremely Turbid (Clear); Urine Color Light-Yellow (Yellow); Urine Culture Reflex Order NOT NEEDED; Urine Glucose NEGATIVE (Negative); Urine Ketones TRACE (Negative); Urine Microscopic Reflex YN NO UMIC; Urine Mucus Slight /HPF (None Seen); Urine Nitrite NEGATIVE (Negative); Urine Protein TRACE (Negative); Urine RBC <5 /HPF (None Seen); Urine Urobilinogen Normal (Normal)
[2024-03-24 21:44] LABS: Barbiturates NEGATIVE (NEGATIVE); Benzodiazepines NEGATIVE (NEGATIVE); Cocaine NEGATIVE (NEGATIVE); METHAMPHETAM NEGATIVE (NEGATIVE); Methadone NEGATIVE (NEGATIVE); Opiates NEGATIVE (NEGATIVE); Phencyclidine NEGATIVE (NEGATIVE); THC Cannibis NEGATIVE (NEGATIVE)
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
--- NOTE | 2024-03-24 22:01 | ER ---
Nurse's Notes [facility] Name: Jennifer Kinsey Age: 33 yrs Sex: Female : 1990 Arrival Date: 03/24/2024 Time: 18:42 Bed 5 Private MD: Diagnosis: Other seizures;Headache Presentation: 03/24 18:45 Chief complaint: EMS states: toned out to patient home for weakness and headache. Pt ld1 reports having seizure during the day around 1500. Coronavirus screen: At this time, the client does not indicate any symptoms associated with coronavirus-19. Ebola Screen: No symptoms or risks identified at this time. Initial Sepsis Screen: Does the patient meet any 2 criteria? No. Patient's initial sepsis screen is negative. Does the patient have a suspected source of infection? No. Patient's initial sepsis screen is negative. Risk Assessment: Do you want to hurt yourself or someone else? Patient reports no desire to harm self or others. Onset of symptoms was March 24, 2024. 18:45 Method Of Arrival: EMS: [facility] ld1 18:45 Acuity: EDSON 3 ld1 Triage Assessment: 18:47 General: Appears in no apparent distress. comfortable, Behavior is calm, cooperative, ld1 appropriate for age. Pain: Complains of pain in face and neck Pain does not radiate. Pain currently is 5 out of 10 on a pain scale. Quality of pain is described as throbbing. EENT: No signs and/or symptoms were reported regarding the EENT system. Neuro: Level of Consciousness is awake, alert, obeys commands, Oriented to person, place, time, situation. Cardiovascular: Capillary refill < 3 seconds Patient's skin is warm and dry. Respiratory: Airway is patent Respiratory effort is even, unlabored. GI: Abdomen is round non-distended. : No signs and/or symptoms were reported regarding the genitourinary system. Derm: No signs and/or symptoms reported regarding the dermatologic system. Musculoskeletal: No signs and/or symptoms reported regarding the musculoskeletal system. Historical: - Allergies: 18:47 PENICILLINS; ld1 - PMHx: 18:47 None; ld1 - PSHx: 18:47 Appendectomy; tubal ligation; ld1 - Immunization history:: Adult Immunizations up to date. - Infectious Disease History:: Denies. - Social history:: Smoking status: Patient denies any tobacco usage or history of. Screenin:00 [facility] ED Fall Risk Assessment (Adult) History of falling in the last 3 months, jb4 including since admission No falls in past 3 months (0 pts) Confusion or Disorientation No (0 pts) Intoxicated or Sedated No (0 pts) Impaired Gait No (0 pts) Mobility Assist Device Used No (0 pt) Altered Elimination No (0 pt) Score/Fall Risk Level 0 - 2 = Low Risk Oriented to surroundings, Maintained a safe environment. Abuse screen: Denies threats or abuse. Nutritional screening: No deficits noted. Tuberculosis screening: No symptoms or risk factors identified. Assessment: 19:00 General: Appears in no apparent distress. comfortable, Behavior is calm, cooperative, jb4 appropriate for age. Pain: Complains of pain in right femoral area and left femoral area, headache Pain does not radiate. Pain currently is 6 out of 10 on a pain scale. Neuro: Level of Consciousness is awake, alert, obeys commands, Oriented to person, place, time, situation. Cardiovascular: Patient's skin is warm and dry. Respiratory: Airway is patent Respiratory effort is even, unlabored, Respiratory pattern is regular, symmetrical. GI: No signs and/or symptoms were reported involving the gastrointestinal system. : No signs and/or symptoms were reported regarding the genitourinary system. EENT: No signs and/or symptoms were reported regarding the EENT system. Derm: Skin is intact, Skin is pink, warm \T\ dry. Musculoskeletal: Circulation, motion, and sensation intact. Range of motion: intact in all extremities. 20:00 Reassessment: Patient appears in no apparent distress at this time. Patient and/or jb4 family updated on plan of care and expected duration. Pain level reassessed. Patient is alert, oriented x 3, equal unlabored respirations, skin warm/dry/pink. 21:30 Reassessment: Patient appears in no apparent distress at this time. Patient and/or jb4 family updated on plan of care and expected duration. Pain level reassessed. Patient is alert, oriented x 3, equal unlabored respirations, skin warm/dry/pink. 22:25 Reassessment: Patient appears in no apparent distress at this time. Patient and/or jb4 family updated on plan of care and expected duration. Pain level reassessed. Patient is alert, oriented x 3, equal unlabored respirations, skin warm/dry/pink. Vital Signs: 18:45 BP 127 / 86; Pulse 79; Resp 18; Temp 97.8(TE); Pulse Ox 98% on R/A; Weight 77.11 kg; ld1 Height 5 ft. 0 in. ; Pain 5/10; 20:00 BP 127 / 70; Pulse 73; Resp 16; Pulse Ox 97% on R/A; jb4 21:30 BP 112 / 78; Pulse 64; Resp 16; Pulse Ox 96% on R/A; jb4 18:45 Body Mass Index 33.20 (77.11 kg, 152.4 cm) ld1 18:45 Pain Scale: Adult ld1 Vitals: 20:00 Cardiac Rhythm Assessment Sinus rhythm. jb4 21:30 Cardiac Rhythm Assessment Sinus rhythm. jb4 Annia Coma Score: 21:30 Eye Response: spontaneous(4). Motor Response: obeys commands(6). Verbal Response: jb4 oriented(5). Total: 15. ED Course: 18:44 Patient arrived in ED. ty 18:47 Triage completed. ld1 18:47 Arm band placed on right wrist. ld1 18:58 Sterling Guillaume MD is Attending Physician. ec2 19:00 Patient has correct armband on for positive identification. Bed in low position. Call jb4 light in reach. Side rails up X 1. Provided Education on: plan of care. 19:00 No provider procedures requiring assistance completed. jb4 19:23 Troponin HS Sent. jb4 19:23 PT-INR Sent. jb4 19:23 NT PRO-BNP Sent. jb4 19:23 Magnesium Sent. jb4 19:23 LFT's Sent. jb4 19:23 CBC with Diff Sent. jb4 19:23 Basic Metabolic Panel Sent. jb4 19:23 Salicylate Sent. jb4 19:24 Ptt, Activated Sent. jb4 19:24 ETOH Level Sent. jb4 19:24 Acetaminophen Sent. jb4 19:28 CT Head Brain wo Cont In Process Unspecified. EDMS 20:07 Erlin Perales, RN is Primary Nurse. jb4 20:50 XRAY Chest (1 view) In Process Unspecified. EDMS 22:01 Silverio Fields MD is Referral Physician. ec2 22:25 IV discontinued, intact, bleeding controlled, No redness/swelling at site. Pressure jb4 dressing applied. Administered Medications: 19:40 Drug: NS 0.9% IV 1000 ml IV at 1 bolus Per protocol; 1000 mL bolus Route: IV; Rate: 1 jb4 bolus; Site: right antecubital; 19:40 Drug: metoCLOPramide IVP 10 mg IVP once; over 1 to 2 minutes Route: IVP; Site: right jb4 antecubital; 19:40 Drug: diphenhydrAMINE IVP 25 mg IVP once Route: IVP; Site: right antecubital; jb4 Medication: 22:25 VIS not applicable for this client. jb4 Outcome: 22:01 Discharge ordered by MD. ec2 22:25 Discharged to home ambulatory, jb4 22:25 Condition: stable 22:25 Discharge instructions given to patient, Instructed on discharge instructions, follow up and referral plans. Demonstrated understanding of instructions, follow-up care, 22:29 Patient left the ED. jb4 Signatures: Dispatcher [employer] Erlin Ralph RN RN jb4 Selena Almeida RN RN ld1 Sterling Guillaume MD MD ec2 Sal Osman
[2024-03-24 23:29] VITALS: BP 112/78; TEMP 97.8; O2SAT 96
--- NOTE | 2024-03-27 14:21 | EKG ---
Test Date: 2024-03-24 Test Time: 19:49:49 Rn Community: BF MEASUREMENT RESULTS: Intervals: Rate: 79 LA: 132 QRSD: 80 QT: 404 QTc: 463 [place]: P: 53 LA: 132 QRS: 78 T: 31 INTERPRETIVE STATEMENTS: Normal sinus rhythm with sinus arrhythmia Possible Left atrial enlargement Borderline ECG Compared to ECG 09/02/2011 19:29:39 No significant changes Electronically Signed On 03-27-24 14:14:16 CDT by Michael Lam
== END 2024-03-24 22:29 | disposition home or self-care (01) ==
LOC: ER 18:42
DX: R56.9 Unspecified convulsions (principal); R51.9 Headache, unspecified
CPT/HCPCS: 93005; 85025; 80048; 36415; 83735; 81025; 85610; 80076; 85730; 81003; 84484; 83880; 80307; 70450; 71045; 96375; 96374; 99284; 80143; 80179; 82077; J2765; J1200; J7030